=== PATIENT | male | born 1970 | race Caucasian/White ===

== ENCOUNTER 2022-09-02 00:08 | Outpatient (RCR) | payer BC, SELFPAY ==
[2022-08-31] MEDS: Normal Saline Flush 10 ML SYR IVP (07:21)
[2022-08-31 07:38] LABS: Abs Immature Grans 0.03 10^3/uL (0.0-0.06); Absolute Basophil Count 0.05 10^3/uL (0.0-0.2); Absolute Eosinophil Count 0.14 10^3/uL (0.0-0.7); Absolute Lymphocyte Count 1.91 10^3/uL (1.2-3.4); Absolute Monocyte Count 0.78 10^3/uL (0.1-0.8); Absolute Neutrophil Count 5.63 10^3/uL (1.2-6.7); Basophils % 0.6; Eosinophils % 1.6; HCT 43.2 % (40.0-50.0); HGB 14.1 g/dL (13.5-17.5); Immature Grans % 0.4; Lymphocytes % 22.4; MCH 26.4 pg (27.0-33.0); MCHC 32.6 % (32.0-36.0); MCV 81 fL (80-95); MPV 10.7 fL (8.0-11.0); Monocytes % 9.1; Neutrophils % 65.9; Platelet Count 267 10^3/uL (130-400); RBC 5.34 10^6/uL (4.36-5.78); RDW-SD 38.1 fL; WBC 8.54 10^3/uL (4.4-10.8)
[2022-08-31 07:52] LABS: ALT 58 U/L (16-63); AST 74 U/L (15-37); Alkaline Phosphatase 98 U/L (46-116); Anion Gap 7.7 mmol/L (3-11); BUN 12 mg/dL (7-18); Bilirubin, Total 0.9 mg/dL (0.2-1.0); CO2 30.3 mmol/L (21.0-32.0); Calcium 9.7 mg/dL (8.5-10.1); Chloride 101 mmol/L (98-107); Estimated GFR 91.69 (mL/min/1.73m2); Glucose 104 mg/dL (74-106); Potassium 4.1 mmol/L (3.5-5.1); Sodium 139 mmol/L (136-145); Total Protein 7.9 g/dL (6.4-8.2)
[2022-08-31 21:55] LABS: CEA 2.6 ng/mL (See Note)
[2022-09-02 11:24] VITALS: BP 121/66; PULSE 85; RESP 20; TEMP 36.7; O2SAT 97
[2022-09-02] MEDS: Normal Saline Flush 10 ML SYR IVP (11:31)
[2022-09-02] MEDS: Heparin 500 UNITS/5 ML SYRINGE IV (11:32)
== END 2022-09-02 23:59 | disposition home or self-care (01) ==
LOC: INF 00:08
PROVIDERS: PCP Physician Assistant; Visit Provider Internal Medicine Hematology & Oncology
DX: Z45.2 Encounter for adjustment and management of vascular access device (principal); C20 Malignant neoplasm of rectum
CPT/HCPCS: 36591; 80053; 96523; 82378; 85025

== ENCOUNTER 2022-10-03 03:18 | Outpatient (RCR) | payer BC, SELFPAY ==
[2022-09-03 00:23] VITALS: BP 121/66; PULSE 85; RESP 20; TEMP 36.7
[2022-09-14] MEDS: Normal Saline Flush 10 ML SYR IVP (07:49)
[2022-09-14 08:01] LABS: Absolute Basophil Count 0.04 10^3/uL (0.0-0.2); Absolute Eosinophil Count 0.12 10^3/uL (0.0-0.7); Absolute Lymphocyte Count 1.74 10^3/uL (1.2-3.4); Absolute Monocyte Count 0.37 10^3/uL (0.1-0.8); Basophils % 1.2; Eosinophils % 3.5; HCT 38.9 % (40.0-50.0); HGB 12.5 g/dL (13.5-17.5); Lymphocytes % 50.1; MCHC 32.1 % (32.0-36.0); MCV 81 fL (80-95); MPV 10.1 fL (8.0-11.0); Monocytes % 10.7; Neutrophils % 34.5; Platelet Count 171 10^3/uL (130-400); RDW-SD 37.4 fL; WBC 3.47 10^3/uL (4.4-10.8)
[2022-09-14 08:16] LABS: ALT 45 U/L (16-63); AST 26 U/L (15-37); Albumin 3.6 g/dL (3.4-5.0); Alkaline Phosphatase 76 U/L (46-116); Anion Gap 5.6 mmol/L (3-11); BUN 11 mg/dL (7-18); Bilirubin, Total 0.4 mg/dL (0.2-1.0); CO2 29.4 mmol/L (21.0-32.0); CREATININE 0.9 mg/dL (0.70-1.30); Chloride 104 mmol/L (98-107); Estimated GFR 104.05 (mL/min/1.73m2); Glucose 107 mg/dL (74-106); Sodium 139 mmol/L (136-145); Total Protein 6.8 g/dL (6.4-8.2)
[2022-09-14 19:02] LABS: CEA 1.7 ng/mL (See Note)
[2022-09-16] MEDS: Normal Saline Flush 10 ML SYR IVP (11:42)
[2022-09-16] MEDS: Heparin 500 UNITS/5 ML SYRINGE IV (11:42)
[2022-09-28] MEDS: Normal Saline Flush 10 ML SYR IVP (07:59)
[2022-09-28 08:18] LABS: Abs Immature Grans 0.01 10^3/uL (0.0-0.06); HCT 39.4 % (40.0-50.0); HGB 12.6 g/dL (13.5-17.5); MCH 25.4 pg (27.0-33.0); MCV 79 fL (80-95); MPV 9.9 fL (8.0-11.0); Platelet Count 138 10^3/uL (130-400); RBC 4.96 10^6/uL (4.36-5.78); RDW 13.7 % (11.8-14.1); RDW-SD 37.8 fL; WBC 2.54 10^3/uL (4.4-10.8)
[2022-09-28 08:37] LABS: ALT 42 U/L (16-63); AST 21 U/L (15-37); Albumin 3.7 g/dL (3.4-5.0); Alkaline Phosphatase 78 U/L (46-116); Anion Gap 6.1 mmol/L (3-11); BUN 13 mg/dL (7-18); Bilirubin, Total 0.5 mg/dL (0.2-1.0); CO2 27.9 mmol/L (21.0-32.0); CREATININE 0.9 mg/dL (0.70-1.30); Calcium 9.1 mg/dL (8.5-10.1); Chloride 102 mmol/L (98-107); Estimated GFR 104.05 (mL/min/1.73m2); Glucose 111 mg/dL (74-106); Potassium 3.9 mmol/L (3.5-5.1); Sodium 136 mmol/L (136-145); Total Protein 7.3 g/dL (6.4-8.2)
[2022-09-28 08:38] LABS: Absolute Eosinophil Count 0.05 10^3/uL (0.0-0.7); Absolute Lymphocyte Count 1.57 10^3/uL (1.2-3.4); Absolute Neutrophil Count 0.61 10^3/uL (1.2-6.7); Atypical Lymphocytes % 5; Bands % 0; Diff Comment Manual Differential; RBC Morphology Normal
[2022-09-28 20:33] LABS: CEA 1.4 ng/mL (See Note)
[2022-10-03] MEDS: Normal Saline Flush 10 ML SYR IVP (07:15)
[2022-10-03 07:35] LABS: Abs Immature Grans 0.06 10^3/uL (0.0-0.06); Absolute Basophil Count 0.04 10^3/uL (0.0-0.2); Absolute Eosinophil Count 0.05 10^3/uL (0.0-0.7); Absolute Lymphocyte Count 2.05 10^3/uL (1.2-3.4); Absolute Neutrophil Count 0.78 10^3/uL (1.2-6.7); Basophils % 1.1; Eosinophils % 1.4; HCT 41.1 % (40.0-50.0); HGB 13.2 g/dL (13.5-17.5); Immature Grans % 1.6; Lymphocytes % 55.7; MCH 25.8 pg (27.0-33.0); MCHC 32.1 % (32.0-36.0); MCV 80 fL (80-95); MPV 10.5 fL (8.0-11.0); Neutrophils % 21.2; Platelet Count 211 10^3/uL (130-400); RBC 5.11 10^6/uL (4.36-5.78); RDW 14.2 % (11.8-14.1); RDW-SD 39.8 fL; WBC 3.68 10^3/uL (4.4-10.8)
[2022-10-03 07:58] LABS: ALT 45 U/L (16-63); AST 22 U/L (15-37); Albumin 3.9 g/dL (3.4-5.0); Alkaline Phosphatase 83 U/L (46-116); Anion Gap 8.8 mmol/L (3-11); BUN 21 mg/dL (7-18); Bilirubin, Total 0.6 mg/dL (0.2-1.0); CO2 28.2 mmol/L (21.0-32.0); Calcium 9.1 mg/dL (8.5-10.1); Chloride 103 mmol/L (98-107); Diff Comment Agrees w/ Instrument; Estimated GFR 91.69 (mL/min/1.73m2); Glucose 109 mg/dL (74-106); Potassium 4.1 mmol/L (3.5-5.1); RBC Morphology Normal; Sodium 140 mmol/L (136-145); Total Protein 7.5 g/dL (6.4-8.2)
== END 2022-10-03 23:59 | disposition home or self-care (01) ==
LOC: INF 03:18
PROVIDERS: Visit Provider Internal Medicine Hematology & Oncology
DX: Z45.2 Encounter for adjustment and management of vascular access device (principal); C20 Malignant neoplasm of rectum
CPT/HCPCS: 36591; 80053; 96523; 82378; 85025

== ENCOUNTER 2022-10-23 02:44 | Outpatient (RCR) | payer BC, SELFPAY ==
[2022-10-04 00:19] VITALS: BP 121/66; PULSE 85; RESP 20; TEMP 36.7
[2022-10-10] MEDS: Normal Saline Flush 10 ML SYR IVP (07:59)
[2022-10-10 08:26] LABS: Abs Immature Grans 0.13 10^3/uL (0.0-0.06); Absolute Basophil Count 0.08 10^3/uL (0.0-0.2); Absolute Eosinophil Count 0.06 10^3/uL (0.0-0.7); Absolute Lymphocyte Count 2.31 10^3/uL (1.2-3.4); Absolute Monocyte Count 0.82 10^3/uL (0.1-0.8); Absolute Neutrophil Count 3.87 10^3/uL (1.2-6.7); Basophils % 1.1; Eosinophils % 0.8; HCT 42.3 % (40.0-50.0); HGB 13.6 g/dL (13.5-17.5); Immature Grans % 1.8; Lymphocytes % 31.8; MCH 25.7 pg (27.0-33.0); MCHC 32.2 % (32.0-36.0); MCV 80 fL (80-95); MPV 10.5 fL (8.0-11.0); Monocytes % 11.3; Neutrophils % 53.2; Platelet Count 219 10^3/uL (130-400); RBC 5.29 10^6/uL (4.36-5.78); RDW 14.7 % (11.8-14.1); RDW-SD 42.4 fL; WBC 7.27 10^3/uL (4.4-10.8)
[2022-10-10 08:42] LABS: ALT 49 U/L (16-63); AST 25 U/L (15-37); Albumin 3.9 g/dL (3.4-5.0); Alkaline Phosphatase 80 U/L (46-116); Anion Gap 6.6 mmol/L (3-11); BUN 13 mg/dL (7-18); Bilirubin, Total 0.5 mg/dL (0.2-1.0); CO2 29.4 mmol/L (21.0-32.0); CREATININE 0.9 mg/dL (0.70-1.30); Calcium 9.4 mg/dL (8.5-10.1); Chloride 101 mmol/L (98-107); Estimated GFR 104.05 (mL/min/1.73m2); Glucose 110 mg/dL (74-106); Sodium 137 mmol/L (136-145); Total Protein 7.6 g/dL (6.4-8.2)
[2022-10-10 18:30] LABS: CEA 1.1 ng/mL (See Note)
[2022-10-23 08:58] LABS: HGB 12.9 g/dL (13.5-17.5); MCH 26.3 pg (27.0-33.0); MCHC 33.1 % (32.0-36.0); MCV 80 fL (80-95); MPV 10.4 fL (8.0-11.0); Nucleated RBC 0.5 % (0.0-0.3); Platelet Count 135 10^3/uL (130-400); RDW 15.2 % (11.8-14.1); RDW-SD 42.5 fL; WBC 4.23 10^3/uL (4.4-10.8)
[2022-10-23] MEDS: Normal Saline Flush 10 ML SYR IVP (09:13)
[2022-10-23 09:14] LABS: ALT 59 U/L (16-63); AST 29 U/L (15-37); Albumin 3.6 g/dL (3.4-5.0); Alkaline Phosphatase 94 U/L (46-116); Anion Gap 6.7 mmol/L (3-11); BUN 11 mg/dL (7-18); Bilirubin, Total 0.4 mg/dL (0.2-1.0); CO2 30.3 mmol/L (21.0-32.0); Calcium 9.1 mg/dL (8.5-10.1); Chloride 106 mmol/L (98-107); Estimated GFR 91.69 (mL/min/1.73m2); Glucose 121 mg/dL (74-106); Potassium 3.7 mmol/L (3.5-5.1); Sodium 143 mmol/L (136-145); Total Protein 7.3 g/dL (6.4-8.2)
[2022-10-23 09:16] LABS: Absolute Basophil Count 0.04 10^3/uL (0.0-0.2); Absolute Eosinophil Count 0.21 10^3/uL (0.0-0.7); Absolute Lymphocyte Count 1.44 10^3/uL (1.2-3.4); Absolute Monocyte Count 0.17 10^3/uL (0.1-0.8); Absolute Neutrophil Count 1.99 10^3/uL (1.2-6.7); Bands % 4; Diff Comment Manual Differential; Metamyelocytes % 3; Myelocytes % 6; RBC Morphology Normal
[2022-10-23 19:19] LABS: CEA 1.5 ng/mL (See Note)
== END 2022-11-02 23:59 | disposition home or self-care (01) ==
LOC: INF 02:44
PROVIDERS: Visit Provider Internal Medicine Hematology & Oncology
DX: C20 Malignant neoplasm of rectum (principal); Z45.2 Encounter for adjustment and management of vascular access device
CPT/HCPCS: 36591; 80053; 82378; 85025

== ENCOUNTER 2022-11-20 02:05 | Outpatient (RCR) | payer BC, SELFPAY ==
[2022-11-03 00:08] VITALS: BP 121/66; PULSE 85; RESP 20; TEMP 36.7
[2022-11-07 08:11] LABS: Abs Immature Grans 0.82 10^3/uL (0.0-0.06); HCT 39.5 % (40.0-50.0); HGB 12.6 g/dL (13.5-17.5); MCH 25.8 pg (27.0-33.0); MCHC 31.9 % (32.0-36.0); MCV 81 fL (80-95); MPV 10.5 fL (8.0-11.0); Platelet Count 141 10^3/uL (130-400); RBC 4.89 10^6/uL (4.36-5.78); RDW 16.6 % (11.8-14.1); RDW-SD 46.2 fL; WBC 10.16 10^3/uL (4.4-10.8)
[2022-11-07 08:31] LABS: ALT 101 U/L (16-63); AST 43 U/L (15-37); Albumin 3.6 g/dL (3.4-5.0); Alkaline Phosphatase 112 U/L (46-116); Anion Gap 8.6 mmol/L (3-11); BUN 25 mg/dL (7-18); Bilirubin, Total 0.4 mg/dL (0.2-1.0); CO2 28.4 mmol/L (21.0-32.0); CREATININE 0.9 mg/dL (0.70-1.30); Chloride 101 mmol/L (98-107); Estimated GFR 104.05 (mL/min/1.73m2); Glucose 105 mg/dL (74-106); Sodium 138 mmol/L (136-145); Total Protein 7.5 g/dL (6.4-8.2)
[2022-11-07 09:00] LABS: Absolute Monocyte Count 1.63 10^3/uL (0.1-0.8); Absolute Neutrophil Count 5.28 10^3/uL (1.2-6.7); Bands % 1
[2022-11-07 09:02] LABS: Absolute Lymphocyte Count 2.13 10^3/uL (1.2-3.4); Atypical Lymphocytes % 2; Diff Comment Manual Differential; Metamyelocytes % 4; Myelocytes % 6
[2022-11-07 09:03] LABS: RBC Morphology Normal
[2022-11-07] MEDS: Normal Saline Flush 10 ML SYR IVP (10:21)
[2022-11-08 11:53] LABS: CEA 1.5 ng/mL (See Note)
[2022-11-20] MEDS: Normal Saline Flush 10 ML SYR IVP (08:01)
[2022-11-20 08:12] LABS: HCT 40.9 % (40.0-50.0); HGB 12.9 g/dL (13.5-17.5); MCH 25.7 pg (27.0-33.0); MCHC 31.5 % (32.0-36.0); MCV 82 fL (80-95); MPV 10.7 fL (8.0-11.0); Nucleated RBC 0.8 % (0.0-0.3); RBC 5.01 10^6/uL (4.36-5.78); RDW 18.6 % (11.8-14.1); RDW-SD 51.2 fL; WBC 11.87 10^3/uL (4.4-10.8)
[2022-11-20 08:26] LABS: ALT 85 U/L (16-63); AST 41 U/L (15-37); Absolute Eosinophil Count 0.12 10^3/uL (0.0-0.7); Absolute Lymphocyte Count 1.78 10^3/uL (1.2-3.4); Absolute Monocyte Count 0.71 10^3/uL (0.1-0.8); Absolute Neutrophil Count 8.78 10^3/uL (1.2-6.7); Albumin 3.7 g/dL (3.4-5.0); Alkaline Phosphatase 130 U/L (46-116); Anion Gap 6.1 mmol/L (3-11); Anisocytosis 1+; BUN 20 mg/dL (7-18); Bands % 8; Bilirubin, Total 0.3 mg/dL (0.2-1.0); CO2 29.9 mmol/L (21.0-32.0); Calcium 9.3 mg/dL (8.5-10.1); Chloride 104 mmol/L (98-107); Diff Comment Manual Differential; Estimated GFR 91.69 (mL/min/1.73m2); Glucose 112 mg/dL (74-106); Metamyelocytes % 1; Myelocytes % 3; Polychromasia Present; Potassium 3.5 mmol/L (3.5-5.1); Sodium 140 mmol/L (136-145); Total Protein 7.5 g/dL (6.4-8.2)
[2022-11-20 08:27] LABS: Platelet Count 123 10^3/uL (130-400)
[2022-11-20 20:22] LABS: CEA 1.5 ng/mL (See Note)
== END 2022-12-03 23:59 | disposition home or self-care (01) ==
LOC: INF 02:05
PROVIDERS: Visit Provider Internal Medicine Hematology & Oncology
DX: C20 Malignant neoplasm of rectum (principal); Z45.2 Encounter for adjustment and management of vascular access device
CPT/HCPCS: 36591; 80053; 82378; 85025

== ENCOUNTER 2023-01-02 01:33 | Outpatient (RCR) | payer BC, SELFPAY ==
[2022-12-04 00:12] VITALS: BP 121/66; PULSE 85; RESP 20; TEMP 36.7
[2022-12-05] MEDS: Normal Saline Flush 10 ML SYR IVP (07:35)
[2022-12-05 08:14] LABS: HCT 40.3 % (40.0-50.0); HGB 12.6 g/dL (13.5-17.5); MCH 26.1 pg (27.0-33.0); MCHC 31.3 % (32.0-36.0); MCV 84 fL (80-95); MPV 10.6 fL (8.0-11.0); Nucleated RBC 0.4 % (0.0-0.3); Platelet Count 158 10^3/uL (130-400); RBC 4.82 10^6/uL (4.36-5.78); RDW 19.2 % (11.8-14.1); RDW-SD 57.1 fL; WBC 12.31 10^3/uL (4.4-10.8)
[2022-12-05 08:40] LABS: Metamyelocytes % 2; Myelocytes % 1
[2022-12-05 08:43] LABS: ALT 75 U/L (16-63); AST 38 U/L (15-37); Albumin 3.6 g/dL (3.4-5.0); Alkaline Phosphatase 126 U/L (46-116); Anion Gap 9.1 mmol/L (3-11); BUN 21 mg/dL (7-18); Bilirubin, Total 0.4 mg/dL (0.2-1.0); CO2 26.9 mmol/L (21.0-32.0); CREATININE 0.9 mg/dL (0.70-1.30); Calcium 9.3 mg/dL (8.5-10.1); Chloride 103 mmol/L (98-107); Estimated GFR 104.05 (mL/min/1.73m2); Glucose 97 mg/dL (74-106); Potassium 3.7 mmol/L (3.5-5.1); Sodium 139 mmol/L (136-145); Total Protein 7.5 g/dL (6.4-8.2)
[2022-12-05 08:52] LABS: Absolute Lymphocyte Count 2.34 10^3/uL (1.2-3.4); Absolute Neutrophil Count 7.76 10^3/uL (1.2-6.7); Bands % 3
[2022-12-05 08:53] LABS: Absolute Basophil Count 0.12 10^3/uL (0.0-0.2); Absolute Eosinophil Count 0.12 10^3/uL (0.0-0.7)
[2022-12-05 08:54] LABS: Anisocytosis 1+; Diff Comment Manual Differential
[2022-12-06 10:13] LABS: CEA 1.8 ng/mL (See Note)
[2022-12-18] MEDS: Normal Saline Flush 10 ML SYR IVP (07:38)
[2022-12-18 08:00] LABS: Abs Immature Grans 0.48 10^3/uL (0.0-0.06); HCT 39.6 % (40.0-50.0); HGB 12.5 g/dL (13.5-17.5); MCH 26.4 pg (27.0-33.0); MCHC 31.6 % (32.0-36.0); MCV 84 fL (80-95); MPV 11.2 fL (8.0-11.0); RBC 4.73 10^6/uL (4.36-5.78); RDW 19.7 % (11.8-14.1); RDW-SD 59.2 fL; WBC 11.49 10^3/uL (4.4-10.8)
[2022-12-18 08:16] LABS: ALT 75 U/L (16-63); AST 37 U/L (15-37); Albumin 3.7 g/dL (3.4-5.0); Alkaline Phosphatase 152 U/L (46-116); Anion Gap 9.1 mmol/L (3-11); BUN 18 mg/dL (7-18); Bilirubin, Total 0.5 mg/dL (0.2-1.0); CO2 29.9 mmol/L (21.0-32.0); Calcium 9.4 mg/dL (8.5-10.1); Chloride 104 mmol/L (98-107); Estimated GFR 91.69 (mL/min/1.73m2); Glucose 130 mg/dL (74-106); Potassium 3.5 mmol/L (3.5-5.1); Sodium 143 mmol/L (136-145); Total Protein 7.5 g/dL (6.4-8.2)
[2022-12-18 08:26] LABS: Absolute Lymphocyte Count 1.84 10^3/uL (1.2-3.4); Absolute Neutrophil Count 8.04 10^3/uL (1.2-6.7); Bands % 5; Platelet Count 136 10^3/uL (130-400)
[2022-12-18 08:27] LABS: Absolute Basophil Count 0.11 10^3/uL (0.0-0.2); Absolute Eosinophil Count 0.23 10^3/uL (0.0-0.7); Absolute Monocyte Count 0.92 10^3/uL (0.1-0.8); Diff Comment Manual Differential; Metamyelocytes % 3; Polychromasia Present
[2023-01-02] MEDS: Normal Saline Flush 10 ML SYR IVP (07:15)
[2023-01-02] MEDS: Heparin 500 UNITS/5 ML SYRINGE IV (07:16)
[2023-01-02 07:48] LABS: Abs Immature Grans 0.15 10^3/uL (0.0-0.06); Absolute Basophil Count 0.05 10^3/uL (0.0-0.2); Absolute Eosinophil Count 0.03 10^3/uL (0.0-0.7); Absolute Monocyte Count 0.62 10^3/uL (0.1-0.8); Absolute Neutrophil Count 3.76 10^3/uL (1.2-6.7); Basophils % 0.8; Eosinophils % 0.5; HCT 38.2 % (40.0-50.0); HGB 12.2 g/dL (13.5-17.5); Immature Grans % 2.3; Lymphocytes % 29.2; MCH 27.4 pg (27.0-33.0); MCHC 31.9 % (32.0-36.0); MCV 86 fL (80-95); MPV 11.1 fL (8.0-11.0); Monocytes % 9.5; Neutrophils % 57.7; Platelet Count 145 10^3/uL (130-400); RBC 4.46 10^6/uL (4.36-5.78); RDW 19.4 % (11.8-14.1); RDW-SD 59.7 fL; WBC 6.51 10^3/uL (4.4-10.8)
[2023-01-02 08:05] LABS: ALT 66 U/L (16-63); AST 42 U/L (15-37); Albumin 3.5 g/dL (3.4-5.0); Alkaline Phosphatase 124 U/L (46-116); Anion Gap 9.5 mmol/L (3-11); BUN 14 mg/dL (7-18); Bilirubin, Total 0.4 mg/dL (0.2-1.0); CO2 27.5 mmol/L (21.0-32.0); CREATININE 0.9 mg/dL (0.70-1.30); Calcium 9.1 mg/dL (8.5-10.1); Chloride 104 mmol/L (98-107); Estimated GFR 104.05 (mL/min/1.73m2); Glucose 153 mg/dL (74-106); Potassium 3.4 mmol/L (3.5-5.1); Sodium 141 mmol/L (136-145); Total Protein 7.2 g/dL (6.4-8.2)
[2023-01-02 19:07] LABS: CEA 2.2 ng/mL (See Note)
== END 2023-01-03 23:59 | disposition home or self-care (01) ==
LOC: INF 01:33
PROVIDERS: Visit Provider Internal Medicine Hematology & Oncology
DX: C20 Malignant neoplasm of rectum (principal); Z45.2 Encounter for adjustment and management of vascular access device
CPT/HCPCS: 36591; 80053; 82378; 85025

== ENCOUNTER 2023-06-02 00:07 | Outpatient (RCR) | payer BC, SELFPAY ==
[2023-05-31] MEDS: Normal Saline Flush 10 ML SYR IVP (08:29)
[2023-05-31 09:00] LABS: Abs Immature Grans 0.17 10^3/uL (0.0-0.06); Absolute Basophil Count 0.04 10^3/uL (0.0-0.2); Absolute Eosinophil Count 0.09 10^3/uL (0.0-0.7); Absolute Lymphocyte Count 1.34 10^3/uL (1.2-3.4); Absolute Monocyte Count 0.61 10^3/uL (0.1-0.8); Basophils % 0.6; Eosinophils % 1.4; HGB 12.8 g/dL (13.5-17.5); Immature Grans % 2.7; Lymphocytes % 21.4; MCH 25.9 pg (27.0-33.0); MCV 81 fL (80-95); Monocytes % 9.8; Neutrophils % 64.1; Platelet Count 145 10^3/uL (130-400); RBC 4.95 10^6/uL (4.36-5.78); RDW 15.5 % (11.8-14.1); RDW-SD 44.3 fL; WBC 6.25 10^3/uL (4.4-10.8)
[2023-05-31 09:18] LABS: ALT 34 U/L (16-63); AST 23 U/L (15-37); Albumin 3.4 g/dL (3.4-5.0); Alkaline Phosphatase 99 U/L (46-116); Anion Gap 4.9 mmol/L (3-11); BUN 16 mg/dL (7-18); Bilirubin, Total 0.4 mg/dL (0.2-1.0); CO2 29.1 mmol/L (21.0-32.0); CREATININE 1.1 mg/dL (0.70-1.30); Chloride 104 mmol/L (98-107); Estimated GFR 81.28 (mL/min/1.73m2); Glucose 102 mg/dL (74-106); Sodium 138 mmol/L (136-145); Total Protein 7.4 g/dL (6.4-8.2)
[2023-05-31 18:02] LABS: CEA 1.6 ng/mL (See Note)
[2023-06-02] MEDS: Normal Saline Flush 10 ML SYR IVP (12:54)
== END 2023-06-05 23:59 | disposition home or self-care (01) ==
LOC: INF 00:07
PROVIDERS: Visit Provider Internal Medicine Hematology & Oncology
DX: C20 Malignant neoplasm of rectum (principal)
CPT/HCPCS: 36591; 80053; 96372; 96523; 82378; 85025; J2506

== ENCOUNTER 2023-06-30 00:06 | Outpatient (RCR) | payer BC, SELFPAY ==
[2023-06-14] MEDS: Normal Saline Flush 10 ML SYR IVP (08:22)
[2023-06-14 08:41] LABS: Abs Immature Grans 0.17 10^3/uL (0.0-0.06); Absolute Basophil Count 0.05 10^3/uL (0.0-0.2); Absolute Eosinophil Count 0.03 10^3/uL (0.0-0.7); Absolute Lymphocyte Count 1.26 10^3/uL (1.2-3.4); Absolute Monocyte Count 0.84 10^3/uL (0.1-0.8); Absolute Neutrophil Count 3.43 10^3/uL (1.2-6.7); Basophils % 0.9; Eosinophils % 0.5; HCT 39.1 % (40.0-50.0); HGB 12.4 g/dL (13.5-17.5); Immature Grans % 2.9; Lymphocytes % 21.8; MCH 25.8 pg (27.0-33.0); MCHC 31.7 % (32.0-36.0); MCV 82 fL (80-95); MPV 11.1 fL (8.0-11.0); Monocytes % 14.5; Neutrophils % 59.4; RDW 16.5 % (11.8-14.1); RDW-SD 47.3 fL; WBC 5.78 10^3/uL (4.4-10.8)
[2023-06-14 09:02] LABS: ALT 52 U/L (16-63); AST 30 U/L (15-37); Albumin 3.4 g/dL (3.4-5.0); Alkaline Phosphatase 107 U/L (46-116); Anion Gap 8.8 mmol/L (3-11); BUN 14 mg/dL (7-18); Bilirubin, Total 0.4 mg/dL (0.2-1.0); CO2 28.2 mmol/L (21.0-32.0); Calcium 8.9 mg/dL (8.5-10.1); Chloride 104 mmol/L (98-107); Estimated GFR 91.12 (mL/min/1.73m2); Glucose 94 mg/dL (74-106); Potassium 4.1 mmol/L (3.5-5.1); Sodium 141 mmol/L (136-145); Total Protein 7.2 g/dL (6.4-8.2)
[2023-06-14 09:08] LABS: Diff Comment Diff Reviewed; Platelet Count 99 10^3/uL (130-400); RBC Morphology Normal
[2023-06-14 18:23] LABS: CEA 1.8 ng/mL (See Note)
[2023-06-16] MEDS: Normal Saline Flush 10 ML SYR IVP (12:00)
[2023-06-28] MEDS: Normal Saline Flush 10 ML SYR IVP (07:58)
[2023-06-28 08:12] LABS: Abs Immature Grans 0.31 10^3/uL (0.0-0.06); Absolute Basophil Count 0.05 10^3/uL (0.0-0.2); Absolute Eosinophil Count 0.02 10^3/uL (0.0-0.7); Absolute Lymphocyte Count 0.99 10^3/uL (1.2-3.4); Absolute Monocyte Count 0.64 10^3/uL (0.1-0.8); Absolute Neutrophil Count 3.92 10^3/uL (1.2-6.7); Basophils % 0.8; Eosinophils % 0.3; HCT 39.7 % (40.0-50.0); HGB 12.7 g/dL (13.5-17.5); Immature Grans % 5.2; Lymphocytes % 16.7; MCH 26.1 pg (27.0-33.0); MCV 82 fL (80-95); MPV 11.4 fL (8.0-11.0); Monocytes % 10.8; Neutrophils % 66.2; Platelet Count 103 10^3/uL (130-400); RBC 4.87 10^6/uL (4.36-5.78); RDW-SD 50.8 fL; WBC 5.93 10^3/uL (4.4-10.8)
[2023-06-28 08:28] LABS: ALT 46 U/L (16-63); AST 28 U/L (15-37); Albumin 3.2 g/dL (3.4-5.0); Alkaline Phosphatase 127 U/L (46-116); Anion Gap 8.8 mmol/L (3-11); BUN 14 mg/dL (7-18); Bilirubin, Total 0.3 mg/dL (0.2-1.0); CO2 28.2 mmol/L (21.0-32.0); Calcium 9.5 mg/dL (8.5-10.1); Chloride 105 mmol/L (98-107); Estimated GFR 91.12 (mL/min/1.73m2); Glucose 115 mg/dL (74-106); Potassium 3.7 mmol/L (3.5-5.1); Sodium 142 mmol/L (136-145)
[2023-06-28 08:29] LABS: Diff Comment Diff Reviewed; RBC Morphology Normal
[2023-06-28 18:22] LABS: CEA 2.2 ng/mL (See Note)
[2023-06-30] MEDS: Normal Saline Flush 10 ML SYR IVP (10:56)
== END 2023-07-04 23:59 | disposition home or self-care (01) ==
LOC: INF 00:06
PROVIDERS: Nurse Practitioner Family; Visit Provider Internal Medicine Hematology & Oncology
DX: C20 Malignant neoplasm of rectum (principal); C78.7 Secondary malignant neoplasm of liver and intrahepatic bile duct; C78.00 Secondary malignant neoplasm of unspecified lung
CPT/HCPCS: 36415; 36591; 80053; 96372; 96523; 82378; 85025; J2506

== ENCOUNTER 2023-07-28 00:45 | Outpatient (RCR) | payer BC, SELFPAY ==
[2023-07-12] MEDS: Normal Saline Flush 10 ML SYR IVP (08:43)
[2023-07-12 09:08] LABS: Abs Immature Grans 0.26 10^3/uL (0.0-0.06); Absolute Basophil Count 0.07 10^3/uL (0.0-0.2); Absolute Eosinophil Count 0.02 10^3/uL (0.0-0.7); Absolute Lymphocyte Count 1.18 10^3/uL (1.2-3.4); Absolute Monocyte Count 0.83 10^3/uL (0.1-0.8); Absolute Neutrophil Count 3.79 10^3/uL (1.2-6.7); Basophils % 1.1; Eosinophils % 0.3; HCT 38.9 % (40.0-50.0); HGB 12.3 g/dL (13.5-17.5); Immature Grans % 4.2; Lymphocytes % 19.2; MCH 26.2 pg (27.0-33.0); MCHC 31.6 % (32.0-36.0); MCV 83 fL (80-95); MPV 10.7 fL (8.0-11.0); Monocytes % 13.5; Neutrophils % 61.7; RBC 4.69 10^6/uL (4.36-5.78); RDW 19.8 % (11.8-14.1); RDW-SD 57.6 fL; WBC 6.15 10^3/uL (4.4-10.8)
[2023-07-12 09:27] LABS: Diff Comment Diff Reviewed; Platelet Count 98 10^3/uL (130-400); RBC Morphology Normal
[2023-07-12 09:43] LABS: ALT 51 U/L (16-63); AST 30 U/L (15-37); Albumin 3.2 g/dL (3.4-5.0); Alkaline Phosphatase 145 U/L (46-116); Anion Gap 9.5 mmol/L (3-11); BUN 15 mg/dL (7-18); Bilirubin, Total 0.3 mg/dL (0.2-1.0); CO2 26.5 mmol/L (21.0-32.0); CREATININE 0.8 mg/dL (0.70-1.30); Calcium 9.1 mg/dL (8.5-10.1); Chloride 104 mmol/L (98-107); Estimated GFR 107.15 (mL/min/1.73m2); Glucose 113 mg/dL (74-106); Potassium 3.6 mmol/L (3.5-5.1); Sodium 140 mmol/L (136-145)
[2023-07-12 20:50] LABS: CEA 2.2 ng/mL (See Note)
[2023-07-14] MEDS: Normal Saline Flush 10 ML SYR IVP (12:05)
[2023-07-26] MEDS: Normal Saline Flush 10 ML SYR IVP (08:38)
[2023-07-26 08:45] LABS: Abs Immature Grans 0.26 10^3/uL (0.0-0.06); Absolute Basophil Count 0.04 10^3/uL (0.0-0.2); Absolute Eosinophil Count 0.02 10^3/uL (0.0-0.7); Absolute Lymphocyte Count 1.04 10^3/uL (1.2-3.4); Absolute Monocyte Count 0.62 10^3/uL (0.1-0.8); Absolute Neutrophil Count 3.41 10^3/uL (1.2-6.7); Basophils % 0.7; Eosinophils % 0.4; HCT 38.1 % (40.0-50.0); HGB 11.9 g/dL (13.5-17.5); Immature Grans % 4.8; Lymphocytes % 19.3; MCH 27.1 pg (27.0-33.0); MCHC 31.2 % (32.0-36.0); MCV 87 fL (80-95); MPV 10.6 fL (8.0-11.0); Monocytes % 11.5; Neutrophils % 63.3; Nucleated RBC 0.4 % (0.0-0.3); Platelet Count 105 10^3/uL (130-400); RBC 4.39 10^6/uL (4.36-5.78); RDW 20.9 % (11.8-14.1); RDW-SD 64.8 fL; WBC 5.39 10^3/uL (4.4-10.8)
[2023-07-26 08:56] LABS: Anisocytosis 2+; Diff Comment RBC Morph Reviewed
[2023-07-26 09:00] LABS: ALT 44 U/L (16-63); AST 28 U/L (15-37); Albumin 3.1 g/dL (3.4-5.0); Alkaline Phosphatase 136 U/L (46-116); Anion Gap 8.8 mmol/L (3-11); BUN 15 mg/dL (7-18); Bilirubin, Total 0.4 mg/dL (0.2-1.0); CO2 26.2 mmol/L (21.0-32.0); CREATININE 0.8 mg/dL (0.70-1.30); Calcium 8.8 mg/dL (8.5-10.1); Chloride 108 mmol/L (98-107); Estimated GFR 107.15 (mL/min/1.73m2); Glucose 132 mg/dL (74-106); Potassium 4.1 mmol/L (3.5-5.1); Sodium 143 mmol/L (136-145); Total Protein 6.6 g/dL (6.4-8.2)
[2023-07-26 17:21] LABS: CEA 1.6 ng/mL (See Note)
[2023-07-28] MEDS: Normal Saline Flush 10 ML SYR IVP (10:27)
== END 2023-08-04 23:59 | disposition home or self-care (01) ==
LOC: INF 00:45
PROVIDERS: Nurse Practitioner Family; Visit Provider Internal Medicine Hematology & Oncology
DX: C20 Malignant neoplasm of rectum (principal); C78.7 Secondary malignant neoplasm of liver and intrahepatic bile duct; C78.00 Secondary malignant neoplasm of unspecified lung
CPT/HCPCS: 36591; 80053; 96372; 96523; 82378; 85025; J2506

== ENCOUNTER 2023-08-11 00:09 | Outpatient (RCR) | payer BC, SELFPAY ==
[2023-08-09] MEDS: Normal Saline Flush 10 ML SYR IVP (09:32)
[2023-08-09 09:57] LABS: Abs Immature Grans 0.13 10^3/uL (0.0-0.06); Absolute Basophil Count 0.05 10^3/uL (0.0-0.2); Absolute Eosinophil Count 0.03 10^3/uL (0.0-0.7); Absolute Monocyte Count 0.73 10^3/uL (0.1-0.8); Absolute Neutrophil Count 4.12 10^3/uL (1.2-6.7); Basophils % 0.8; Eosinophils % 0.5; HGB 12.2 g/dL (13.5-17.5); Immature Grans % 2.1; Lymphocytes % 17.9; MCH 27.6 pg (27.0-33.0); MCHC 31.3 % (32.0-36.0); MCV 88 fL (80-95); MPV 11.3 fL (8.0-11.0); Monocytes % 11.9; Neutrophils % 66.8; Platelet Count 127 10^3/uL (130-400); RBC 4.42 10^6/uL (4.36-5.78); RDW-SD 66.8 fL; WBC 6.16 10^3/uL (4.4-10.8)
[2023-08-09 09:59] LABS: RDW 20.8 % (11.8-14.1)
[2023-08-09 10:24] LABS: ALT 46 U/L (16-63); AST 34 U/L (15-37); Albumin 3.2 g/dL (3.4-5.0); Alkaline Phosphatase 142 U/L (46-116); Anion Gap 8.1 mmol/L (3-11); BUN 16 mg/dL (7-18); Bilirubin, Total 0.4 mg/dL (0.2-1.0); CO2 25.9 mmol/L (21.0-32.0); CREATININE 0.9 mg/dL (0.70-1.30); Calcium 8.7 mg/dL (8.5-10.1); Chloride 106 mmol/L (98-107); Glucose 114 mg/dL (74-106); Potassium 4.3 mmol/L (3.5-5.1); Sodium 140 mmol/L (136-145); Total Protein 6.8 g/dL (6.4-8.2)
[2023-08-09 18:01] LABS: CEA 1.7 ng/mL (See Note)
[2023-08-11] MEDS: Normal Saline Flush 10 ML SYR IVP (11:53)
== END 2023-09-03 23:59 | disposition home or self-care (01) ==
LOC: INF 00:09
PROVIDERS: Nurse Practitioner Family; Visit Provider Internal Medicine Hematology & Oncology
DX: C20 Malignant neoplasm of rectum (principal); C78.7 Secondary malignant neoplasm of liver and intrahepatic bile duct; C78.00 Secondary malignant neoplasm of unspecified lung
CPT/HCPCS: 36591; 80053; 96372; 96523; 82378; 85025; J2506

== ENCOUNTER 2023-09-15 00:13 | Outpatient (RCR) | payer BC, SELFPAY ==
[2023-09-13] MEDS: Normal Saline Flush 10 ML SYR IVP (07:38)
[2023-09-13 07:46] LABS: Abs Immature Grans 0.02 10^3/uL (0.0-0.06); Absolute Basophil Count 0.03 10^3/uL (0.0-0.2); Absolute Eosinophil Count 0.06 10^3/uL (0.0-0.7); Absolute Lymphocyte Count 0.88 10^3/uL (1.2-3.4); Absolute Monocyte Count 0.54 10^3/uL (0.1-0.8); Basophils % 0.7 %; Eosinophils % 1.4 %; HCT 40.2 % (40.0-50.0); HGB 12.5 g/dL (13.5-17.5); Immature Grans % 0.5 %; Lymphocytes % 19.9 %; MCH 28.4 pg (27.0-33.0); MCHC 31.1 % (32.0-36.0); MCV 91 fL (80-95); MPV 10.3 fL (8.0-11.0); Monocytes % 12.2 %; Neutrophils % 65.3 %; Platelet Count 142 10^3/uL (130-400); RDW 15.9 % (11.8-14.1); RDW-SD 53.6 fL; WBC 4.43 10^3/uL (4.4-10.8)
[2023-09-13 08:00] LABS: ALT 50 U/L (16-63); AST 32 U/L (15-37); Albumin 3.5 g/dL (3.4-5.0); Alkaline Phosphatase 123 U/L (46-116); Anion Gap 5.3 mmol/L (3-11); BUN 16 mg/dL (7-18); Bilirubin, Total 0.7 mg/dL (0.2-1.0); CO2 28.7 mmol/L (21.0-32.0); CREATININE 0.9 mg/dL (0.70-1.30); Calcium 9.2 mg/dL (8.5-10.1); Chloride 104 mmol/L (98-107); Glucose 94 mg/dL (74-106); Sodium 138 mmol/L (136-145)
[2023-09-13 18:52] LABS: CEA 1.7 ng/mL (See Note)
[2023-09-15] MEDS: Normal Saline Flush 10 ML SYR IVP (09:29)
== END 2023-10-04 23:59 | disposition home or self-care (01) ==
LOC: INF 00:13
PROVIDERS: Nurse Practitioner Family; Visit Provider Internal Medicine Hematology & Oncology
DX: C20 Malignant neoplasm of rectum (principal); C78.7 Secondary malignant neoplasm of liver and intrahepatic bile duct
CPT/HCPCS: 36591; 80053; 96523; 82378; 85025

== ENCOUNTER 2023-10-11 04:47 | Outpatient (RCR) | payer BC, SELFPAY ==
[2023-10-11] MEDS: Normal Saline Flush 10 ML SYR IVP (12:04)
[2023-10-11 12:41] LABS: Abs Immature Grans 0.01 10^3/uL (0.0-0.06); Absolute Basophil Count 0.02 10^3/uL (0.0-0.2); Absolute Eosinophil Count 0.05 10^3/uL (0.0-0.7); Absolute Lymphocyte Count 0.98 10^3/uL (1.2-3.4); Absolute Monocyte Count 0.46 10^3/uL (0.1-0.8); Basophils % 0.6 %; Eosinophils % 1.4 %; HCT 41.7 % (40.0-50.0); HGB 13.3 g/dL (13.5-17.5); Immature Grans % 0.3 %; Lymphocytes % 27.8 %; MCH 28.6 pg (27.0-33.0); MCHC 31.9 % (32.0-36.0); MCV 90 fL (80-95); MPV 10.4 fL (8.0-11.0); Monocytes % 13.1 %; Neutrophils % 56.8 %; Platelet Count 148 10^3/uL (130-400); RBC 4.65 10^6/uL (4.36-5.78); RDW 13.2 % (11.8-14.1); RDW-SD 43.5 fL; WBC 3.52 10^3/uL (4.4-10.8)
[2023-10-11 13:11] LABS: ALT 39 U/L (16-63); AST 25 U/L (15-37); Albumin 3.5 g/dL (3.4-5.0); Alkaline Phosphatase 103 U/L (46-116); Anion Gap 6.1 mmol/L (3-11); BUN 16 mg/dL (7-18); Bilirubin, Total 0.7 mg/dL (0.2-1.0); CO2 28.9 mmol/L (21.0-32.0); CREATININE 0.8 mg/dL (0.70-1.30); Calcium 8.8 mg/dL (8.5-10.1); Chloride 106 mmol/L (98-107); Estimated GFR 107.15 (mL/min/1.73m2); Glucose 104 mg/dL (74-106); Potassium 4.2 mmol/L (3.5-5.1); Sodium 141 mmol/L (136-145)
[2023-10-11 22:47] LABS: CEA 1.7 ng/mL (See Note); PSA, Screening 0.5 ng/mL (<=3.5)
== END 2023-11-03 23:59 | disposition home or self-care (01) ==
LOC: INF 04:47
PROVIDERS: Nurse Practitioner Family; Physician Assistant Medical; Visit Provider Internal Medicine Hematology & Oncology
DX: C20 Malignant neoplasm of rectum (principal); C78.00 Secondary malignant neoplasm of unspecified lung; C78.7 Secondary malignant neoplasm of liver and intrahepatic bile duct; Z45.2 Encounter for adjustment and management of vascular access device
CPT/HCPCS: 36591; 80053; 84153; 82378; 85025

== ENCOUNTER 2024-02-07 01:28 | Outpatient (RCR) | payer BC, SELFPAY ==
[2024-02-07] MEDS: Normal Saline Flush 10 ML SYR IVP (13:10)
[2024-02-07 13:27] LABS: Abs Immature Grans 0.01 10^3/uL (0.0-0.06); Absolute Basophil Count 0.04 10^3/uL (0.0-0.2); Absolute Eosinophil Count 0.04 10^3/uL (0.0-0.7); Absolute Lymphocyte Count 1.17 10^3/uL (1.2-3.4); Absolute Monocyte Count 0.37 10^3/uL (0.1-0.8); Absolute Neutrophil Count 2.56 10^3/uL (1.2-6.7); HCT 43.2 % (40.0-50.0); HGB 14.2 g/dL (13.5-17.5); Immature Grans % 0.2 %; Lymphocytes % 27.9 %; MCH 27.5 pg (27.0-33.0); MCHC 32.9 % (32.0-36.0); MCV 84 fL (80-95); MPV 10.7 fL (8.0-11.0); Monocytes % 8.8 %; Neutrophils % 61.1 %; Platelet Count 141 10^3/uL (130-400); RBC 5.17 10^6/uL (4.36-5.78); RDW 13.6 % (11.8-14.1); RDW-SD 41.7 fL; WBC 4.19 10^3/uL (4.4-10.8)
[2024-02-07 13:42] LABS: ALT 41 U/L (16-63); AST 27 U/L (15-37); Albumin 3.8 g/dL (3.4-5.0); Alkaline Phosphatase 87 U/L (46-116); Anion Gap 7.9 mmol/L (3-11); BUN 20 mg/dL (7-18); Bilirubin, Total 0.92 mg/dL (0.2-1.0); CO2 29.1 mmol/L (21.0-32.0); CREATININE 0.9 mg/dL (0.70-1.30); Calcium 9.6 mg/dL (8.5-10.1); Chloride 105 mmol/L (98-107); Glucose 90 mg/dL (74-106); Potassium 4.2 mmol/L (3.5-5.1); Sodium 142 mmol/L (136-145); Total Protein 7.5 g/dL (6.4-8.2)
[2024-02-10 09:32] LABS: CEA 1.1 ng/mL (See Note)
== END 2024-03-05 23:59 | disposition home or self-care (01) ==
LOC: INF 01:28
PROVIDERS: Nurse Practitioner Family; Visit Provider Internal Medicine Hematology & Oncology
DX: C20 Malignant neoplasm of rectum (principal); C78.7 Secondary malignant neoplasm of liver and intrahepatic bile duct; C78.00 Secondary malignant neoplasm of unspecified lung; Z45.2 Encounter for adjustment and management of vascular access device
CPT/HCPCS: 36591; 80053; 96523; 82378; 85025

== ENCOUNTER 2024-07-31 13:37 | Outpatient (REF) | payer BC, SELFPAY ==
[2024-07-31 15:57] LABS: Abs Immature Grans 0.02 10^3/uL (0.0-0.06); Absolute Basophil Count 0.03 10^3/uL (0.0-0.2); Absolute Eosinophil Count 0.04 10^3/uL (0.0-0.7); Absolute Lymphocyte Count 1.07 10^3/uL (1.2-3.4); Absolute Monocyte Count 0.41 10^3/uL (0.1-0.8); Absolute Neutrophil Count 2.49 10^3/uL (1.2-6.7); Basophils % 0.7 %; HCT 42.4 % (40.0-50.0); HGB 13.5 g/dL (13.5-17.5); Immature Grans % 0.5 %; Lymphocytes % 26.4 %; MCH 27.4 pg (27.0-33.0); MCHC 31.8 % (32.0-36.0); MCV 86 fL (80-95); MPV 11.3 fL (8.0-11.0); Monocytes % 10.1 %; Neutrophils % 61.3 %; Platelet Count 133 10^3/uL (130-400); RBC 4.93 10^6/uL (4.36-5.78); RDW 13.2 % (11.8-14.1); RDW-SD 40.7 fL; WBC 4.06 10^3/uL (4.4-10.8)
[2024-07-31 16:04] LABS: ALT 54 U/L (16-63); AST 28 U/L (15-37); Alkaline Phosphatase 90 U/L (46-116); Anion Gap 8.5 mmol/L (3-11); BUN 18 mg/dL (7-18); Bilirubin, Total 1.1 mg/dL (0.2-1.0); CO2 27.5 mmol/L (21.0-32.0); CREATININE 0.9 mg/dL (0.70-1.30); Calcium 9.3 mg/dL (8.5-10.1); Chloride 104 mmol/L (98-107); Estimated GFR 102.76 (mL/min/1.73m2); Sodium 140 mmol/L (136-145); Total Protein 7.1 g/dL (6.4-8.2)
[2024-07-31 16:11] LABS: Glucose 108 mg/dL (74-106)
[2024-08-03 09:34] LABS: CEA 1.1 ng/mL (See Note)
== END 2024-07-31 13:38 | disposition home or self-care (01) ==
LOC: LBN 13:37
PROVIDERS: Visit Provider Internal Medicine Hematology & Oncology
DX: C20 Malignant neoplasm of rectum (principal); C78.7 Secondary malignant neoplasm of liver and intrahepatic bile duct
CPT/HCPCS: 80053; 82378; 85025

== ENCOUNTER 2024-11-19 01:10 | Outpatient (RCR) | payer BC, SELFPAY ==
[2024-11-19] MEDS: Normal Saline Flush 10 ML SYR IVP (12:34)
[2024-11-19 13:15] LABS: Abs Immature Grans 0.00 10^3/uL (0.0-0.06); HCT 42.1 % (40.0-50.0); HGB 13.9 g/dL (13.5-17.5); Immature Grans % 0.0 %; MCH 27.6 pg (27.0-33.0); MCHC 33.0 % (32.0-36.0); MCV 84 fL (80-95); MPV 11.5 fL (8.0-11.0); Platelet Count 156 10^3/uL (130-400); RBC 5.03 10^6/uL (4.36-5.78); RDW 13.4 % (11.8-14.1); RDW-SD 41.1 fL; WBC 5.09 10^3/uL (4.4-10.8)
[2024-11-19 13:41] LABS: ALT 47 U/L (16-63); AST 32 U/L (15-37); Albumin 4.1 g/dL (3.4-5.0); Alkaline Phosphatase 105 U/L (46-116); Anion Gap 9.3 mmol/L (3-11); BUN 16 mg/dL (7-18); Bilirubin, Total 1.2 mg/dL (0.2-1.0); CO2 29.7 mmol/L (21.0-32.0); Calcium 9.5 mg/dL (8.5-10.1); Chloride 103 mmol/L (98-107); Estimated GFR 110.87 (mL/min/1.73m2); Glucose 89 mg/dL (74-106); Potassium 3.8 mmol/L (3.5-5.1); Sodium 142 mmol/L (136-145); Total Protein 7.6 g/dL (6.4-8.2)
[2024-11-19 22:48] LABS: CEA 1.4 ng/mL (See Note)
== END 2024-12-03 23:59 | disposition home or self-care (01) ==
LOC: INF 01:10
PROVIDERS: Visit Provider Internal Medicine Hematology & Oncology
DX: C18.9 Malignant neoplasm of colon, unspecified (principal); C78.7 Secondary malignant neoplasm of liver and intrahepatic bile duct; Z45.2 Encounter for adjustment and management of vascular access device
CPT/HCPCS: 36591; 80053; 82378; 85025